=== PATIENT | female | born 1995 | race Two or more races ===

== ENCOUNTER 2020-10-12 23:11 | Emergency (ER) | payer OTHER ==
[~2020-10-12] VITALS: Ht 167.6 cm; Wt 58.6 kg
[2020-10-12 23:50] LABS: HCG UR SG 1.018 (1.003-1.030)
[2020-10-12 23:51] LABS: MICROSCOPIC INDICATED
--- NOTE | 2020-10-13 00:06 | NUR ---
PT C/O OF PAIN IN ABDOMEN THAT RADIATES TO HER RT FLANK AND LOWER BACK AREA SINCE YESTERDAY. PT ATTACHED TO MONITORS. VSS. BED IN LOW POSITION. RAILS ENGAGED. PT IN NAD. CALL LIGHT WITHIN REACH. WILL CONTINUE TO MONITOR. DECREASED URINATION OUTPUT, SLIGHT DISCOMFORT. DENIES BLOOD IN URINE.
[2020-10-13] MEDS ORDERED: CEFDINIR 300 MG CAPSULE ONE ×2 (00:46→03:44)
[2020-10-13] MEDS ORDERED: ONDANSETRON 2MG/ML, 2ML ONE ×2 (00:51→04:08)
[2020-10-13] MEDS ORDERED: MORPHINE SULFATE 4 MG/ML, 1ML ONE ×3 (00:51→02:23)
[2020-10-13] MEDS ORDERED: ONDANSETRON 2MG/ML, 2ML IVPush ONE ×2 (01:00→04:30)
[2020-10-13] MEDS ORDERED: CEFDINIR 300 MG CAPSULE PO ONE ×2 (01:00→04:00)
[2020-10-13 01:05] LABS: BASOPHILS % (AUTO) 1 % (0-1); EOSINOPHILS % (AUTO) 1 % (1-7); LYMPHOCYTES % (AUTO) 25 % (22-44); MEAN CORPUSCULAR HEMOGLOBIN 27.8 pg (27.0-34.8); MEAN CORPUSCULAR HGB CONC 32.4 g/dL (32.4-35.8); MEAN PLATELET VOLUME 8.3 fL (7.4-10.4); MONOCYTES % (AUTO) 7 % (2-9); NEUTROPHILS % (AUTO) 66 % (42-75); PLATELET COUNT 314 x10^3/uL (130-400); RED BLOOD COUNT 3.86 x10^6/uL (3.82-5.3); RED CELL DISTRIBUTION WIDTH 14.9 % (9.6-15.2)
[2020-10-13 01:08] LABS: MD NO
[2020-10-13 01:14] LABS: ALANINE AMINOTRANSFERASE 18 U/L (12-78); ALBUMIN 3.7 g/dL (3.4-5.0); ANION GAP 5 mmol/L (5-15); CALCIUM 8.3 mg/dL (8.5-10.1); CHLORIDE 110 mmol/L (98-107); CREATININE 0.78 mg/dL (0.55-1.02)
[2020-10-13 01:16] LABS: ALKALINE PHOSPHATASE 62 U/L (45-117); BILIRUBIN,TOTAL 0.3 mg/dL (0.2-1.0); TOTAL PROTEIN 6.7 g/dL (6.4-8.2)
[2020-10-13] MEDS: MORPHINE SULFATE 4 MG/ML, 1ML IVPush PRN ×2 (01:27→02:48)
--- NOTE | 2020-10-13 01:27 | NUR ---
PT OFF UNIT IN IMAGING. NO ACUTE CHANGES NOTED. PT IN NAD.
[2020-10-13] MEDS ORDERED: POTASSIUM CHLORIDE 20 MEQ TAB.ER.PRT ONE (01:28)
[2020-10-13] MEDS ORDERED: OMNIPAQUE 350 MG/ML, 100ML BOTTLE ONE (01:38)
[2020-10-13] MEDS ORDERED: SODIUM CHLORIDE 0.9% 1,000ML IVBOLUS ONE (02:00)
--- NOTE | 2020-10-13 02:48 | NUR ---
PT MEDICATED PER MAR FOR PAIN, NAD, RESTING ON GURNEY, SIGNIFICANT OTHER AT BS, PT APPEARS MORE COMFORTABLE AFTER MEDICATION, VSS. WCTM. WAITING FOR CT RESULTS. BED IN [facility], RAILS ENGAGED, CALL LIGHT ON LAP
[2020-10-13 04:11] VITALS: BP 97/60
--- NOTE | 2020-10-13 04:18 | NUR ---
pt medicated per paresh w/ abx and zofran for nausea. pt ate crackers with antibiotics but reported increased nausea feelings after. pt resting on gricelda, kinza, appears comfortable, significant other at bs. wctm.
--- NOTE | 2020-10-13 04:38 | NUR ---
Patient walked to restroom and given discharge instructions and they have confirmed that they understand the instructions. Patient ambulatory with steady gait. nad, denies additional questions or needs, pt driving pt home.
== END 2020-10-13 04:39 | disposition home or self-care (01) ==
LOC: ED 10-13 00:52
DX: N10 Acute pyelonephritis (principal); Z90.49 Acquired absence of other specified parts of digestive tract
CPT/HCPCS: 36415; 74177; 80053; 81001; 81025; 85025; 87077; 87086; 87186; 96361; 96374; 96375; 96376; 99285; J2270; J2405; J7030; Q9967